=== PATIENT | female | born 1965 | race Caucasian/White ===

== ENCOUNTER → 2016-08-13 | Outpatient (REF) | payer OTHER | LOC: M SFHCCLAY 12:04 | PROVIDERS: ATTEND Family Medicine | DX: A09 Infectious gastroenteritis and colitis, unspecified (principal) ==

== ENCOUNTER → 2016-11-15 | Outpatient (REF) | payer OTHER ==
[2016-11-15 11:35] LABS: ANION GAP 6 MEQ/L (8-16); BLOOD UREA NITROGEN 13 MG/DL (7-18); CARBON DIOXIDE LEVEL 29 MEQ/L (21-32); CHLORIDE LEVEL 101 MEQ/L (98-107); CHOLESTEROL LEVEL 229 MG/DL (<200); CREATININE FOR GFR 1.02 MG/DL (0.55-1.30); FREE T4 0.99 NG/DL (0.76-1.46); GLOMERULAR FILTRATION RATE > 60.0 (>60); GLUCOSE, FASTING 87 MG/DL (40-105); MAGNESIUM LEVEL 2.1 MG/DL (1.8-2.4); POTASSIUM SERUM 4.3 MEQ/L (3.5-5.1); SODIUM LEVEL 136 MEQ/L (136-145); TRIGLYCERIDES LEVEL 93 MG/DL (<150)
== END ==
LOC: EDSEX → M SFHCCLAY 08:30
PROVIDERS: ATTEND Family Medicine
DX: R00.2 Palpitations (principal); R22.1 Localized swelling, mass and lump, neck; F41.9 Anxiety disorder, unspecified

== ENCOUNTER → 2016-11-15 | Outpatient (CLI) | payer OTHER ==
--- NOTE | 2016-11-15 10:19 | REP ---
CERVICAL SPINE SERIES: Six views. HISTORY: Neck mass. FINDINGS: Lateral views done in flexion/extension and neutral position demonstrate normal alignment of the cervical vertebral column. There is mild degenerative disc narrowing at C5-6 with anterior osteophyte formation. No subluxation or instability is seen. Prevertebral soft tissues are not widened. The glottic and subglottic airway are unremarkable. The hypopharynx and pharynx are intact. A normal epiglottis is seen. No anterior neck soft tissue mass is appreciated. Swimmers lateral view shows no additional abnormality. Open-mouth odontoid view is unremarkable. The AP view shows moderate osteoarthritic facet disease in the cervical spine on the right at C4-5 and C3-4 on the left at C3-4 and C4-5. No bony destructive lesion is seen. IMPRESSION: Degenerative disc disease at C5-6. Osteoarthritic facet changes at C4-5 and C3-4. Neck soft tissues are unremarkable.
== END ==
LOC: EDSEX → M CLY 09:30
PROVIDERS: ATTEND Family Medicine
DX: M50.322 Other cervical disc degeneration at C5-C6 level (principal); M47.892 Other spondylosis, cervical region; R00.2 Palpitations; R22.1 Localized swelling, mass and lump, neck

== ENCOUNTER → 2016-11-18 | Outpatient (CLI) | payer OTHER ==
--- NOTE | 2016-11-19 04:23 | REP ---
Clinical: Right-sided neck mass. Technique: Real time khalil scale and color evaluation using linear high frequency transducer. Findings: Directed ultrasound examination of the right side of the neck at the site of maximal tenderness and mass effect demonstrates multiple normal appearing lymph nodes measuring up to 14 x 5 x 5 mm. No further mass lesion, fluid collection, or abnormalities appreciated. Impression: Mass effect may be secondary to focal lymph nodes. Signed by Luis Manuel Baum MD 11/19/2016 04:15 A
== END ==
LOC: EDSEX → M RAD 09:31
PROVIDERS: ATTEND Family Medicine
DX: R22.1 Localized swelling, mass and lump, neck (principal)

== ENCOUNTER → 2016-11-28 | Outpatient (CLI) | payer OTHER ==
--- NOTE | 2016-12-01 21:53 | HOLTMON ---
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 No atrial fibrillation or atrial flutter. Rare PACs and 1 atrial couplet. No supraventricular tachycardia. Frequent PVCs (2926 isolated PVCs; 36 atrial couplets; 1 nonsustained ventricular tachycardia run (4 beats, 152 BPM). 203 ventricular bigeminy episodes and 15 ventricular trigeminy episodes. No RR intervals >2.0 seconds. Multiple diary entries for dizziness, shortness of breath, chest pain, palpitations, heartburn correlated with sinus rhythm, ventricular bigeminy, PACs, PVCs, Electronically Signed On 12-01-2016 21:53:47 EDT by Mykel Wilson
== END ==
LOC: M EKG 11:07 → EDSEX 11:07
PROVIDERS: ATTEND Family Medicine
DX: R00.2 Palpitations (principal)

== ENCOUNTER → 2016-12-09 | Outpatient (REF) | payer OTHER | LOC: M SFHCCLAY 08:27 | PROVIDERS: ATTEND Family Medicine | DX: F64.0 Transsexualism (principal) ==

== ENCOUNTER → 2017-01-09 | Outpatient (CLI) | payer OTHER ==
--- NOTE | 2017-01-09 12:01 | REP ---
Clinical: Shortness of breath. Technique: PA and lateral. Comparison: 01/16/2016. Findings: A vague right upper lobe opacity is again appreciated and may be slightly more prominent than prior examinations. Active process including malignancy cannot be excluded and requires follow-up. The remainder of lung gomez demonstrate diffuse chronic interstitial changes which are consistent with the found history of sarcoidosis. No effusion. No pneumothorax. Mediastinum and cardiac silhouette are stable. Skeletal structures are intact. Impression: A vague opacity in the right upper lung zone appears slightly more prominent than prior examinations and concerning for active disease. Clinical correlation including chest CT with contrast is recommended.
[2017-01-09 17:35] LABS: ANION GAP 9 MEQ/L (8-16); BLOOD UREA NITROGEN 15 MG/DL (7-18); CALCIUM LEVEL 9.5 MG/DL (8.5-10.1); CARBON DIOXIDE LEVEL 29 MEQ/L (21-32); CHLORIDE LEVEL 104 MEQ/L (98-107); CREATININE FOR GFR 1.03 MG/DL (0.55-1.02); GLOMERULAR FILTRATION RATE > 60.0 (>58); GLUCOSE, FASTING 59 MG/DL (70-105); POTASSIUM SERUM 4.4 MEQ/L (3.5-5.1); SODIUM LEVEL 142 MEQ/L (136-145)
[2017-01-09 18:13] LABS: BASO % 0.4 % (0.0-1.0); EOS # 0.1 K/mm3 (0.0-0.50); EOS % 1.9 % (0.0-3.0); LARGE UNSTAINED CELL # 0.2 K/mm3 (0.0-0.4); LARGE UNSTAINED CELL % 2.3 % (0.0-4.0); LYMPH # 1.8 K/mm3 (1.5-4.5); LYMPH % 25.4 % (24.0-44.0); MEAN CORPUSCULAR HEMOGLOBIN 31.3 pg (27.0-33.0); MEAN CORPUSCULAR HGB CONC 33.9 g/dl (32.0-36.5); MEAN CORPUSCULAR VOLUME 92.3 fl (80.0-96.0); MONO # 0.5 K/mm3 (0.0-0.8); MONO % 7.2 % (0.0-5.0); NEUTROPHILS # 4.4 K/mm3 (1.8-7.7); NEUTROPHILS % 62.8 % (36.0-66.0); PLATELET COUNT, AUTOMATED 272 k/mm3 (150-450); RED CELL DISTRIBUTION WIDTH 12.8 % (11.5-14.5)
== END ==
LOC: M CLY 11:18
PROVIDERS: ATTEND Internal Medicine Cardiovascular Disease
DX: R06.02 Shortness of breath (principal)

== ENCOUNTER → 2017-01-09 | Outpatient (REF) | payer OTHER ==
[2017-01-12 00:06] LABS: Lyme Disease IgG/IgM Antibodie <0.91 ISR (0.00-0.90); Lyme Disease IgM Ab Quantitati <0.80 index (0.00-0.79)
== END ==
LOC: M SFHCCLAY 11:06
PROVIDERS: ATTEND Family Medicine
DX: I42.9 Cardiomyopathy, unspecified (principal)

== ENCOUNTER → 2017-05-06 | Outpatient (REF) | payer OTHER ==
[2017-05-09 08:07] LABS: G6PD2 5.57 x10E6/uL (3.77-5.28); G6PD3 263 (146-376)
== END ==
LOC: M LAB REF 12:19
DX: D89.9 Disorder involving the immune mechanism, unspecified (principal); D86.9 Sarcoidosis, unspecified

== ENCOUNTER → 2017-09-23 | Outpatient (CLI) | payer OTHER | LOC: M EKG 15:35 | DX: I49.3 Ventricular premature depolarization (principal); D86.9 Sarcoidosis, unspecified | CPT/HCPCS: 93225 ==

== ENCOUNTER → 2017-10-08 | Outpatient (CLI) | payer OTHER | LOC: M SLEEP HO 08:34 | DX: G47.30 Sleep apnea, unspecified (principal) | CPT/HCPCS: G0399 ==

== ENCOUNTER 2018-07-29 06:44 | Day surgery (SDC) | payer OTHER ==
[~2018-07-29] VITALS: Ht 170.2 cm; Wt 124.6 kg
[2018-07-29] MEDS: NS 1,000 ML IV ONE (06:00)
[~2018-07-29 06:44] MED LIST: BIOT1CAP2 PO; LOSA50TA88 PO; TEST200I14 SC; VITA100067 PO; VITA500T PO; VITA500T3 PO; XANA0.5T PO; cognium PO
[2018-07-29] MEDS ORDERED: PROPOFOL 200 MG/20 ML VIAL As Ordered ONE ×2 (06:59→07:49)
[2018-07-29] MEDS ORDERED: LIDOCAINE 2% INJ 100 MG/5 ML SDV (FOR ANES.) As Ordered ONE (07:00)
[2018-07-29] MEDS ORDERED: ASPI81TA26 PO (07:28)
--- NOTE | 2018-07-29 08:01 | ROOR ---
Patient Name: Anitra Dai Procedure Date: 07/29/2018 7:37 AM Date of : 1965 Age: 53 Room: [facility] Gender: Female Note Status: Finalized Procedure: Total Colonoscopy to the Cecum + Cold Snare Polypectomy Indications: Screening for colorectal malignant neoplasm Providers: Abhi Das MD Referring MD: Jose G Sow MD Requesting Provider: Medicines: Monitored Anesthesia Care Complications: No immediate complications. Procedure: Pre-Anesthesia Assessment: - The heart rate, respiratory rate, oxygen saturations, blood pressure, adequacy of pulmonary ventilation, and response to care were monitored throughout the procedure. The Colonoscope was introduced through the anus and advanced to the cecum, identified by appendiceal orifice and ileocecal valve. The colonoscopy was performed without difficulty. The patient tolerated the procedure well. The quality of the bowel preparation was good. Findings: The perianal and digital rectal examinations were normal. Non-bleeding internal hemorrhoids were found during retroflexion. The hemorrhoids were small and Grade I (internal hemorrhoids that do not prolapse). A small polyp was found at 25 cm proximal to the anus. The polyp was sessile. The polyp was removed with a cold snare. Resection and retrieval were complete. The exam was otherwise without abnormality on direct and retroflexion views. Impression: - Non-bleeding internal hemorrhoids. - One small polyp at 25 cm proximal to the anus, removed with a cold snare. Resected and retrieved. - The examination was otherwise normal on direct and retroflexion views. - The exam was otherwise normal to the cecum. Recommendation: - Patient has a contact number available for emergencies. The signs and symptoms of potential delayed complications were discussed with the patient. Return to normal activities tomorrow. Written discharge instructions were provided to the patient. - High fiber diet. - Discharge patient to home. - Continue present medications. - Await pathology results. - Telephone GI clinic for pathology results in 1 week. - Repeat colonoscopy for surveillance based on pathology results. - Return to referring physician. - Check Portal Online for Path Results.([email or web address] - The findings and recommendations were discussed with the patient's family. Abhi Das MD Abhi Das MD 07/29/2018 8:01:00 AM Electronically signed by Abhi Das MD Number of Addenda: 0 Note Initiated On: 07/29/2018 7:37 AM Estimated Blood Loss: Estimated blood loss: none.
[2018-07-29 08:20] VITALS: BP 138/77
== END 2018-07-29 08:40 | disposition home or self-care (01) ==
LOC: M OPP 06:44 → EDSEX 07:30 → M OPP 08:40
PROVIDERS: ATTEND Internal Medicine Gastroenterology
DX: D12.6 Benign neoplasm of colon, unspecified (principal); K64.0 First degree hemorrhoids; Z12.11 Encounter for screening for malignant neoplasm of colon

== ENCOUNTER → 2018-09-08 | Outpatient (REF) | payer OTHER ==
[~2018-09-08] MED LIST changes: +ASPI81TA26 PO
== END ==
LOC: M SFHCCLAY 11:20
PROVIDERS: ATTEND Family Medicine
DX: I10 Essential (primary) hypertension (principal); Z83.3 Family history of diabetes mellitus; Z53.9 Procedure and treatment not carried out, unspecified reason

== ENCOUNTER → 2018-10-01 | Outpatient (REF) | payer OTHER ==
[2018-10-01 11:50] LABS: HEMATOCRIT 49.7 % (36.0-47.0); HEMOGLOBIN 16.3 g/dl (12.0-15.5); MEAN CORPUSCULAR HEMOGLOBIN 30.8 pg (27.0-33.0); MEAN CORPUSCULAR HGB CONC 32.8 g/dl (32.0-36.5); MEAN CORPUSCULAR VOLUME 93.8 fl (80.0-96.0); PLATELET COUNT, AUTOMATED 257 10^3/uL (150-450)
[2018-10-01 12:02] LABS: BLOOD UREA NITROGEN 18 MG/DL (7-18); CALCIUM LEVEL 9.2 MG/DL (8.5-10.1); CARBON DIOXIDE LEVEL 28 MEQ/L (21-32); CHLORIDE LEVEL 106 MEQ/L (98-107); CREATININE FOR GFR 0.97 MG/DL (0.55-1.30); GLOMERULAR FILTRATION RATE > 60.0 (>51); GLUCOSE, FASTING 89 MG/DL (70-100); POTASSIUM SERUM 4.3 MEQ/L (3.5-5.1); SODIUM LEVEL 142 MEQ/L (136-145)
[2018-10-01 12:42] LABS: HEMOGLOBIN A1c 5.3 %
== END ==
LOC: M SFHCCLAY 08:06
PROVIDERS: ATTEND Family Medicine
DX: I10 Essential (primary) hypertension (principal); Z83.3 Family history of diabetes mellitus; D86.0 Sarcoidosis of lung

== ENCOUNTER → 2018-12-08 | Outpatient (CLI) | payer OTHER ==
[~2018-12-08] MED LIST changes: +CYAN500T8 PO; -VITA500T3 PO
--- NOTE | 2018-12-08 11:45 | REP ---
REASON: History of sarcoidosis. COMPARISON: 01/09/2017, the latest prior. Scattered opacities seen throughout the lung gomez on the prior exam are less prominent today. There is no plane radiographic evidence of hilar adenopathy. The heart is not enlarged and the pleural angles are sharp. IMPRESSION: There has been some improvement as described above. Whether or not the plain radiographic findings represent stage III or stage IV pulmonary sarcoidosis is uncertain. The Siltzbach classification was used. Electronically Signed by Mane Vines DO 12/08/2018 12:02 P
== END ==
LOC: M CLY 08:21
PROVIDERS: ATTEND Family Medicine
DX: D86.0 Sarcoidosis of lung (principal)

== ENCOUNTER → 2019-03-04 | Outpatient (CLI) | payer BC, OTHER ==
--- NOTE | 2019-03-04 21:56 | REP ---
Clinical: Left hip pain. Technique: Neutral and frog lateral views of the left hip. Findings: Mild degenerative changes include increased sclerosis to the acetabular roof with marginal spurring and mild joint space narrowing. Enthesopathy along the visualized iliac crest inferior pubic ramus and greater trochanter also appreciated. No acute fracture dislocation. No periarticular calcifications. Impression: Mild arthritic degenerative changes. Electronically Signed by Luis Manuel Baum MD 03/04/2019 09:48 P
== END ==
LOC: M CLY 10:14 → M LRY 10:14
PROVIDERS: ATTEND Family Medicine
DX: M25.552 Pain in left hip (principal); M16.12 Unilateral primary osteoarthritis, left hip

== ENCOUNTER → 2020-07-07 | Outpatient (CLI) | payer SELFPAY ==
[~2020-07-07] MED LIST changes: +CYAN500T14 PO; -CYAN500T8 PO; +VITA-243 PO; -VITA500T PO
== END ==
LOC: M LABSMTC 09:56
PROVIDERS: ATTEND Pediatrics
DX: Z11.52 Encounter for screening for COVID-19 (principal)

== ENCOUNTER → 2020-09-16 | Outpatient (CLI) | payer OTHER ==
--- NOTE | 2020-09-17 08:37 | REP ---
INDICATION: GANGLION, RT HAND. Patient notices a mass at the MCP level of the right hand between the index and middle fingers and also a similar size mass felt near the base of the thumb dorsal side. Assess soft tissue lesions. COMPARISON: Comparison right hand radiographs are from August 11, 2020.. TECHNIQUE: Axial, coronal, and sagittal imaging planes utilized. T1 and T2 weighted scans are included with without fat saturation. MR markers are placed proximal to and distal to the site of each of the 2 palpable abnormalities. FINDINGS: There is a set of MR markers placed at the the dorsal aspect of the MCP joint of the middle finger. There is a joint effusion and there is evidence of arthropathy at the 3rd MCP joint but no ganglion cyst is apparent. There is joint space narrowing and some subtle subcortical edema in the distal head of the 3rd metacarpal. Chondromalacia is suspected. No tendon abnormality is appreciated. There is a small amount of joint effusion at the 2nd MCP joint as well. There is 2 advanced arthropathy at the 1st carpometacarpal articulation with joint space narrowing, well established spurring, joint effusion, and multiple periarticular small cysts about the 1st carpometacarpal articulation. There are 2 MR markers placed at 1 of these cysts associated with the joint. This cystic component measures 1.1 cm in greatest diameter. There is some arthropathy in the navicular 0 multangular articulation as well. Some fluid is seen proximal to and distal to the P the form bone the ulnar side of the wrist and adjacent to the distal ulna. Triangular fibrocartilage appears to be intact. No other evidence of arthropathy is seen. No bony destructive lesion is apparent. IMPRESSION: Findings consistent with osteoarthropathy and arthritis associated cyst formation at the 1st carpometacarpal articulation. There is a joint effusion associated with the arthropathy at the 3rd metacarpophalangeal joint. No soft tissue mass seen. <Electronically signed by Humphrey Enciso > 09/17/20 1840
== END ==
LOC: M RAD 15:26
PROVIDERS: ATTEND Orthopaedic Surgery Sports Medicine
DX: M67.441 Ganglion, right hand (principal)

== ENCOUNTER → 2021-01-03 | Outpatient (CLI) | payer OTHER ==
--- NOTE | 2021-01-03 15:47 | REP ---
INDICATION: M25.561 PAIN IN RIGHT KNEE, M25.571 PAIN IN ANKLE AND JOINTS COMPARISON: None. TECHNIQUE: Five views right knee. FINDINGS: There is no evidence of acute fracture, dislocation, or intrinsic bone disease.There is diffuse chondrocalcinosis. Large spurs are seen of the femoral condyles and tibial plateaus. There is mild medial joint space narrowing and subchondral sclerosis. There is severe lateral patellofemoral joint space narrowing with subchondral sclerosis. A large spur is noted of the lateral patellar facet, with moderate spurring of the medial patellar facet and superior and inferior poles of the patella. Two rounded calcific bodies are seen lateral to the lateral patellar facet, in the range of 1 cm in diameter. There is a moderate suprapatellar effusion. IMPRESSION: No fracture or dislocation. Degenerative changes as above with moderate suprapatellar effusion. <Electronically signed by Jerzy Arthur > 01/03/21 [id number]
--- NOTE | 2021-01-03 16:18 | REP ---
INDICATION: M25.561 PAIN IN RIGHT KNEE, M25.571 PAIN IN ANKLE AND JOINTS. COMPARISON: None. TECHNIQUE: Four views of the right ankle. FINDINGS: Four views of the right ankle demonstrate moderate tibiotalar osteoarthritis with anterior and medial tibial spurring. There is distal fibular and talar spurring. Tiny accessory ossicles are seen adjacent to the distal fibular tip. There are larger os ossific densities adjacent to the medial malleolus. There are 2 metallic screws in the anteromedial aspect of the talus. There is midfoot osteoarthritis with a fragmented spurring at the talonavicular articulation. Achilles and plantar calcaneal spurring is noted. There is soft tissue calcification in the distal Achilles tendon consistent with chronic tendonitis. There appears to be a large os trigonum versus is a large posterior talar bony process. No acute bony abnormality. IMPRESSION: Status post pinning of the talus. 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 Calcific Achilles tendinitis. Plantar heel spur as well. Large os trigonum. <Electronically signed by Humphrey Enciso > 01/03/21 [id number]
== END ==
LOC: M CLY 15:12
PROVIDERS: ATTEND Family Medicine
DX: M25.571 Pain in right ankle and joints of right foot (principal); M25.561 Pain in right knee; M77.31 Calcaneal spur, right foot; M19.071 Primary osteoarthritis, right ankle and foot

== ENCOUNTER → 2021-03-15 | Outpatient (CLI) | payer OTHER ==
--- NOTE | 2021-03-15 15:58 | REP ---
INDICATION: SARCOIDOSIS OF LUNG COMPARISON: 12/08/2018 TECHNIQUE: PA and lateral. FINDINGS: The mediastinum and cardiac silhouette are normal. The lung gomez are clear and without acute consolidation, effusion, or pneumothorax. The skeletal structures are intact and normal. IMPRESSION: No acute cardiopulmonary process. <Electronically signed by Luis Manuel Baum > 03/15/21 [id number]
== END ==
LOC: M CLY 15:34
PROVIDERS: ATTEND Physician Assistant
DX: D86.0 Sarcoidosis of lung (principal)

== ENCOUNTER → 2021-03-15 | Outpatient (REF) | payer OTHER, MEDICAID | LOC: M SFHCCLAY 15:17 | PROVIDERS: ATTEND Physician Assistant | DX: Z53.9 Procedure and treatment not carried out, unspecified reason (principal); R35.0 Frequency of micturition ==

== ENCOUNTER 2021-04-13 09:40 | Emergency (ER) | payer OTHER ==
[~2021-04-13] VITALS: Ht 170.2 cm; Wt 116.4 kg
[~2021-04-13 09:40] MED LIST changes: +LOSA50TA28 PO; -LOSA50TA88 PO
[2021-04-13] MEDS ORDERED: TOPA1TAB PO (14:04)
[2021-04-13 15:04] VITALS: BP 121/74
== END 2021-04-13 15:19 | disposition home or self-care (01) ==
LOC: M ED 09:40
DX: H53.8 Other visual disturbances (principal); R51.9 Headache, unspecified; M54.2 Cervicalgia; G31.9 Degenerative disease of nervous system, unspecified; D86.9 Sarcoidosis, unspecified; Z88.0 Allergy status to penicillin; Z88.2 Allergy status to sulfonamides; Z79.82 Long term (current) use of aspirin; Z79.899 Other long term (current) drug therapy

== ENCOUNTER → 2021-06-25 | Outpatient (REF) | payer OTHER, MEDICAID ==
[~2021-06-25] MED LIST changes: +TOPA1TAB PO
== END ==
LOC: M LABDRAWC 15:44
PROVIDERS: ATTEND Urology
DX: Z12.5 Encounter for screening for malignant neoplasm of prostate (principal)

== ENCOUNTER → 2021-06-25 | Outpatient (REF) | payer OTHER, MEDICAID ==
[2021-06-25 17:50] LABS: BLOOD UREA NITROGEN 18 MG/DL (7-18); CREATININE FOR GFR 1.04 MG/DL (0.70-1.30); GLOMERULAR FILTRATION RATE > 60.0 (>56)
== END ==
LOC: M LABDRAWC 15:40
PROVIDERS: ATTEND Psychiatry & Neurology Neurology
DX: I10 Essential (primary) hypertension (principal)

== ENCOUNTER → 2021-10-01 | Outpatient (CLI) | payer OTHER | LOC: M PLAIMG 06:46 | PROVIDERS: ATTEND Family Medicine | DX: M54.59 Other low back pain (principal) ==

== ENCOUNTER → 2021-11-19 | Outpatient (REF) | payer OTHER ==
[2021-11-19 11:46] LABS: BASO % 0.5 % (0.0-1.0); EOS # 0.1 10^3/uL (0.0-0.5); EOS % 1.6 % (0.0-3.0); HEMOGLOBIN 15.7 g/dl (13.5-17.5); LYMPH # 1.5 10^3/uL (1.5-5.0); LYMPH % 23.8 % (24.0-44.0); MEAN CORPUSCULAR HEMOGLOBIN 31.2 pg (27.0-33.0); MEAN CORPUSCULAR HGB CONC 33.4 g/dl (32.0-36.5); MEAN CORPUSCULAR VOLUME 93.3 fl (80.0-96.0); MONO # 0.5 10^3/uL (0.0-0.8); MONO % 8.2 % (2.0-8.0); NEUTROPHILS % 65.6 % (36.0-66.0); PLATELET COUNT, AUTOMATED 267 10^3/uL (150-450); RED BLOOD COUNT 5.04 10^6/uL (4.30-6.10); WHITE BLOOD COUNT 6.1 10^3/uL (4.0-10.0)
[2021-11-19 12:07] LABS: ERYTHROCYTE SEDIMENTATION RATE 4 mm/hr (0-20)
[2021-11-19 13:16] LABS: C REACTIVE PROTEIN QUANTITATIV 0.3 MG/DL (0.00-0.30)
[2021-12-03 16:08] LABS: CYCLIC CITRULLINATED PEPTIDE 7 units (0-19); HLA-B27 Negative (.)
== END ==
LOC: M SFHCCLAY 08:59
PROVIDERS: ATTEND Family Medicine
DX: D86.0 Sarcoidosis of lung (principal)

== ENCOUNTER → 2021-11-19 | Outpatient (CLI) | payer OTHER | LOC: M CLY 09:01 | PROVIDERS: ATTEND Family Medicine | DX: M25.552 Pain in left hip (principal); M43.06 Spondylolysis, lumbar region ==

== ENCOUNTER → 2021-12-20 | Outpatient (REF) | payer OTHER ==
[2021-12-20 13:45] LABS: BASO % 0.5 % (0.0-1.0); EOS # 0.1 10^3/uL (0.0-0.5); EOS % 1.6 % (0.0-3.0); HEMATOCRIT 49.2 % (42.0-52.0); HEMOGLOBIN 16.3 g/dl (13.5-17.5); LYMPH # 1.6 10^3/uL (1.5-5.0); MEAN CORPUSCULAR HGB CONC 33.1 g/dl (32.0-36.5); MEAN CORPUSCULAR VOLUME 93.7 fl (80.0-96.0); MONO # 0.6 10^3/uL (0.0-0.8); MONO % 7.4 % (2.0-8.0); NEUTROPHILS # 6.1 10^3/uL (1.5-8.5); NEUTROPHILS % 71.3 % (36.0-66.0); PLATELET COUNT, AUTOMATED 277 10^3/uL (150-450); RED BLOOD COUNT 5.25 10^6/uL (4.30-6.10); WHITE BLOOD COUNT 8.5 10^3/uL (4.0-10.0)
[2021-12-20 13:53] LABS: APPEARANCE, URINE MANUAL CLEAR (CLEAR); COLOR, URINE MANUAL YELLOW (YELLOW); PH,URINE MAN 6.5 UNITS (5.0 - 7.0); SPECIFIC GRAVITY,URINE MANUAL 1.015 (1.002-1.035)
[2021-12-20 13:54] LABS: BILIRUBIN, URINE MANUAL NEGATIVE (NEGATIVE); BLOOD URINE MANUAL NEGATIVE (NEGATIVE); GLUCOSE, URINE (UA) MANUAL NEGATIVE (NEGATIVE); KETONE, URINE MANUAL NEGATIVE (NEGATIVE); LEUKOCYTE ESTERASE, URINE MAN NEGATIVE (NEGATIVE); NITRITE, URINE MANUAL NEGATIVE (NEGATIVE); PROTEIN, URINE MANUAL NEGATIVE (NEGATIVE); UROBILINOGEN, URINE MANUAL NORMAL (NORMAL)
[2021-12-20 14:19] LABS: CREATININE,RANDOM URINE 47.1 MG/DL
[2021-12-20 14:20] LABS: ALBUMIN 3.7 GM/DL (3.2-5.2); ALT/SGPT 33 U/L (12-78); BILIRUBIN,TOTAL 0.5 MG/DL (0.2-1.0); BLOOD UREA NITROGEN 16 MG/DL (7-18); CARBON DIOXIDE LEVEL 27 MEQ/L (21-32); CHLORIDE LEVEL 108 MEQ/L (98-107); GLOMERULAR FILTRATION RATE > 60.0 (>56); GLUCOSE, FASTING 75 MG/DL (70-100); LDH LACTATE DEHYDROGENASE 216 U/L (87-241); POTASSIUM SERUM 4.6 MEQ/L (3.5-5.1); SODIUM LEVEL 140 MEQ/L (136-145)
[2021-12-20 14:29] LABS: ERYTHROCYTE SEDIMENTATION RATE 4 mm/hr (0-20)
[2021-12-20 15:12] LABS: TOTAL 25(OH) VITAMIN D 27.7 NG/ML (30.0-100.0)
== END ==
LOC: M SFHCRHEU 09:39
PROVIDERS: ATTEND Internal Medicine Rheumatology
DX: D86.9 Sarcoidosis, unspecified (principal); M35.3 Polymyalgia rheumatica; R21 Rash and other nonspecific skin eruption; M35.00 Sjogren syndrome, unspecified

== ENCOUNTER → 2022-01-04 | Outpatient (CLI) | payer OTHER | LOC: M CLY 09:43 | PROVIDERS: ATTEND Internal Medicine Rheumatology | DX: D86.9 Sarcoidosis, unspecified (principal); M35.3 Polymyalgia rheumatica ==

== ENCOUNTER → 2023-08-07 | Outpatient (CLI) | payer OTHER ==
[~2023-08-07] MED LIST changes: +ALPR0.5T3; +NAPR-885; +NAPR-885 PO
== END ==
LOC: EDSEX → M PLAIMG 12:57 → MERGE 13:30
PROVIDERS: ATTEND Physician Assistant
DX: S46.011A Strain of muscle(s) and tendon(s) of the rotator cuff of right shoulder, initial encounter (principal); M67.813 Other specified disorders of tendon, right shoulder; X50.0XXA Overexertion from strenuous movement or load, initial encounter; Y93.89 Activity, other specified; Y92.9 Unspecified place or not applicable

== ENCOUNTER → 2023-09-18 | Outpatient (CLI) | payer OTHER | LOC: M CLY 09:59 | PROVIDERS: ATTEND Family Medicine | DX: M25.572 Pain in left ankle and joints of left foot (principal); R22.42 Localized swelling, mass and lump, left lower limb ==

== ENCOUNTER → 2023-09-18 | Outpatient (REF) | payer OTHER ==
[2023-09-18 18:04] LABS: HEMATOCRIT 46.3 % (42.0-52.0); HEMOGLOBIN 15.8 g/dl (13.5-17.5); MEAN CORPUSCULAR HEMOGLOBIN 31.3 pg (27.0-33.0); MEAN CORPUSCULAR HGB CONC 34.1 g/dl (32.0-36.5); MEAN CORPUSCULAR VOLUME 91.7 fl (80.0-96.0); PLATELET COUNT, AUTOMATED 259 10^3/uL (150-450); RED BLOOD COUNT 5.05 10^6/uL (4.30-6.10); WHITE BLOOD COUNT 7.5 10^3/uL (4.0-10.0)
[2023-09-18 18:11] LABS: ERYTHROCYTE SEDIMENTATION RATE 23 mm/hr (0-20)
[2023-09-18 19:07] LABS: URIC ACID 6.9 MG/DL (3.7-9.2)
[2023-09-18 19:09] LABS: C REACTIVE PROTEIN QUANTITATIV < 0.40 MG/DL (<1.0)
[2023-09-18 19:10] LABS: RHEUMATOID FACTOR QUANT 6.1 IU/ML (<14)
[2023-09-24 12:10] LABS: ANA (HEP2) Negative (.); CYCLIC AMP PLASMA 19.9 pmol/mL (13.9-25.1)
== END ==
LOC: M SFHCCLAY 12:13
PROVIDERS: ATTEND Family Medicine
DX: M25.572 Pain in left ankle and joints of left foot (principal)

== ENCOUNTER → 2023-11-06 | Outpatient (REF) | payer OTHER | LOC: M SFHCRHEU 14:20 | PROVIDERS: ATTEND Internal Medicine Rheumatology | DX: D86.9 Sarcoidosis, unspecified (principal) ==

== ENCOUNTER → 2023-11-07 | Outpatient (CLI) | payer OTHER ==
[2023-11-07 12:19] LABS: HEPATITIS B SURFACE ANTIGEN NEGATIVE (NEGATIVE)
[2023-11-07 12:40] LABS: HEPATITIS C VIRUS ABY INDEX 0.03 INDEX (<0.8)
[2023-11-11 08:57] LABS: QuantiFERON-TB Gold Plus NEGATIVE (NEGATIVE)
== END ==
LOC: M WUC 08:32
PROVIDERS: ATTEND Internal Medicine Rheumatology
DX: D86.9 Sarcoidosis, unspecified (principal); S62.666A Nondisplaced fracture of distal phalanx of right little finger, initial encounter for closed fracture; X58.XXXA Exposure to other specified factors, initial encounter; Y92.9 Unspecified place or not applicable

== ENCOUNTER → 2024-02-19 | Outpatient (CLI) | payer OTHER | LOC: M RAD 14:27 | PROVIDERS: ATTEND Internal Medicine Rheumatology | DX: D86.9 Sarcoidosis, unspecified (principal) ==

== ENCOUNTER → 2024-02-25 | Outpatient (REF) | payer OTHER ==
[2024-02-25 12:13] LABS: BASO # 0.1 10^3/uL (0.0-0.2); BASO % 0.7 % (0.0-1.0); EOS # 0.2 10^3/uL (0.0-0.5); EOS % 3.1 % (0.0-3.0); HEMATOCRIT 50.2 % (42.0-52.0); HEMOGLOBIN 16.6 g/dl (13.5-17.5); LYMPH # 1.8 10^3/uL (1.5-5.0); LYMPH % 24.4 % (24.0-44.0); MEAN CORPUSCULAR HGB CONC 33.1 g/dl (32.0-36.5); MEAN CORPUSCULAR VOLUME 90.6 fl (80.0-96.0); MONO # 0.9 10^3/uL (0.0-0.8); MONO % 12.6 % (2.0-8.0); NEUTROPHILS # 4.3 10^3/uL (1.5-8.5); NEUTROPHILS % 58.9 % (36.0-66.0); PLATELET COUNT, AUTOMATED 287 10^3/uL (150-450); RED BLOOD COUNT 5.54 10^6/uL (4.30-6.10); WHITE BLOOD COUNT 7.4 10^3/uL (4.0-10.0)
[2024-02-25 12:25] LABS: ERYTHROCYTE SEDIMENTATION RATE 19 mm/hr (0-20)
[2024-02-25 12:38] LABS: ALBUMIN 3.5 G/DL (3.2-5.2); ALKALINE PHOSPHATASE 96 U/L (40-129); ALT/SGPT 27 U/L (7.0-40); AST/SGOT 16 U/L (<34); BILIRUBIN,TOTAL 1.1 MG/DL (0.3-1.2); BLOOD UREA NITROGEN 17 MG/DL (9-23); CALCIUM LEVEL 9.5 MG/DL (8.5-10.1); CARBON DIOXIDE LEVEL 30 MMOL/L (20-31); CHLORIDE LEVEL 107 MMOL/L (98-107); CREATININE FOR GFR 0.87 MG/DL (0.70-1.30); GLOMERULAR FILTRATION RATE > 60.0 (>56); GLUCOSE, FASTING 81 MG/DL (60-100); POTASSIUM SERUM 5.2 MMOL/L (3.5-5.1); SODIUM LEVEL 139 MMOL/L (136-145); TOTAL PROTEIN 6.9 G/DL (5.7-8.2)
== END ==
LOC: M SFHCCLAY 07:22
PROVIDERS: ATTEND Family Medicine
DX: D86.9 Sarcoidosis, unspecified (principal)

== ENCOUNTER → 2024-03-11 | Outpatient (CLI) | payer OTHER | LOC: M PLARAD 14:19 | PROVIDERS: ATTEND Orthopaedic Surgery Hand Surgery | DX: M79.672 Pain in left foot (principal) ==

== ENCOUNTER → 2024-05-17 | Outpatient (CLI) | payer OTHER ==
[~2024-05-17] MED LIST changes: +ISOVUE-370 76% 100ML VIAL As Ordered ONE
== END ==
LOC: M RAD 14:45
PROVIDERS: ATTEND Internal Medicine Pulmonary Disease
DX: D86.9 Sarcoidosis, unspecified (principal); R91.1 Solitary pulmonary nodule
CPT/HCPCS: 71260; Q9967

== ENCOUNTER → 2024-08-13 | Outpatient (REF) | payer OTHER ==
[~2024-08-13] MED LIST changes: -ISOVUE-370 76% 100ML VIAL As Ordered ONE
== END ==
LOC: M SFHCPLAZ 12:44
PROVIDERS: ATTEND Physician Assistant
DX: R30.0 Dysuria (principal)

== ENCOUNTER → 2024-11-25 | Outpatient (REF) | payer OTHER ==
[2024-11-25 17:37] LABS: APPEARANCE, URINE HAZY (CLEAR); BACTERIA, URINE AUTO 1+ (NEGATIVE); BILIRUBIN, URINE AUTO NEGATIVE (NEGATIVE); BLOOD, URINE BLOOD NEGATIVE (NEGATIVE); CALCIUM OXALATE CRYSTALS SMALL; GLUCOSE, URINE (UA) AUTO NEGATIVE (NEGATIVE); KETONE, URINE AUTO TRACE mg/dL (NEGATIVE); LEUKOCYTE ESTERASE, URINE AUTO 2+ (NEGATIVE); MUCUS, URINE SMALL (NEGATIVE); NITRITE, URINE AUTO NEGATIVE (NEGATIVE); PROTEIN, URINE AUTO NEGATIVE (NEGATIVE); RBC, URINE AUTO 3 /HPF (0-3); SPECIFIC GRAVITY URINE AUTO 1.026 (1.002-1.035); SQUAMOUS EPITHELIAL CELL UR AU 2 /HPF (0-6); UROBILINOGEN, URINE AUTO 0.2 mg/dL (0.0-2.0); WBC, URINE AUTO 39 /HPF (0-3)
== END ==
LOC: M SFHCADAM 16:46
PROVIDERS: ATTEND Physician Assistant
DX: R30.0 Dysuria (principal)

== ENCOUNTER → 2024-11-30 | Outpatient (REF) | payer OTHER ==
[2024-11-30 17:07] LABS: BASO # 0.1 10^3/uL (0.0-0.2); BASO % 0.8 % (0.0-1.0); EOS # 0.3 10^3/uL (0.0-0.5); EOS % 3.3 % (0.0-3.0); LYMPH # 2.1 10^3/uL (1.5-5.0); LYMPH % 23.9 % (24.0-44.0); MONO # 0.9 10^3/uL (0.0-0.8); MONO % 11.0 % (2.0-8.0); NEUTROPHILS # 5.2 10^3/uL (1.5-8.5); NEUTROPHILS % 60.7 % (36.0-66.0); PLATELET COUNT, AUTOMATED 332 10^3/uL (150-450)
[2024-11-30 17:11] LABS: ALT/SGPT 30.0 U/L (7.0-40); AST/SGOT 24.0 U/L (<34); CALCIUM LEVEL 9.6 MG/DL (8.5-10.1); CARBON DIOXIDE LEVEL 31.0 MMOL/L (20-31); CHLORIDE LEVEL 104.0 MMOL/L (98-107); CHOLESTEROL LEVEL 246.0 MG/DL (<200); CHOLESTEROL RISK RATIO 4.57 (<5); CREATININE FOR GFR 1.01 MG/DL (0.70-1.30); GLOMERULAR FILTRATION RATE 86.7 (>56); LDL CHOLESTEROL 167.4 MG/DL (<100); NON-HDL-C 192.2 MG/DL; POTASSIUM SERUM 4.1 MMOL/L (3.5-5.1); SODIUM LEVEL 143.0 MMOL/L (136-145); TRIGLYCERIDES LEVEL 124.0 MG/DL (<150)
[2024-11-30 17:17] LABS: ESTIMATED AVERAGE GLUCOSE 94.0 MG/DL (60-110)
== END ==
LOC: M SFHCADAM 14:04
PROVIDERS: ATTEND Family Medicine
DX: I11.9 Hypertensive heart disease without heart failure (principal); D86.9 Sarcoidosis, unspecified; L40.50 Arthropathic psoriasis, unspecified; Z79.52 Long term (current) use of systemic steroids; E78.5 Hyperlipidemia, unspecified; Z68.41 Body mass index [BMI] 40.0-44.9, adult

== ENCOUNTER → 2025-01-14 | Outpatient (CLI) | payer OTHER | LOC: M RAD 10:51 | PROVIDERS: ATTEND Physician Assistant | DX: R22.1 Localized swelling, mass and lump, neck (principal) ==

== ENCOUNTER → 2025-02-02 | Outpatient (CLI) | payer OTHER | LOC: M PLALAB 08:59 | PROVIDERS: ATTEND Physician Assistant | DX: Z20.3 Contact with and (suspected) exposure to rabies (principal) ==

== ENCOUNTER → 2025-02-16 | Outpatient (REF) | payer OTHER | LOC: M SFHCADAM 16:42 | PROVIDERS: ATTEND Physician Assistant | DX: N39.0 Urinary tract infection, site not specified (principal) ==

== ENCOUNTER → 2025-02-16 | Outpatient (CLI) | payer OTHER | LOC: M RAD 13:15 | PROVIDERS: ATTEND Physician Assistant | DX: N39.0 Urinary tract infection, site not specified (principal); R31.9 Hematuria, unspecified ==